=== PATIENT | female | born 1960 | race Asian ===

== ENCOUNTER 2017-10-30 14:50 | Outpatient (CLI) | payer OTHER | END 2017-10-30 14:51 | disposition home or self-care (01) | LOC: SC 14:50 | PROVIDERS: ATTEND Specialist | DX: R53.83 Other fatigue (principal); R51 Headache; R06.83 Snoring; G47.29 Other circadian rhythm sleep disorder; G47.00 Insomnia, unspecified | CPT/HCPCS: 99205; 99212 ==

== ENCOUNTER 2017-11-10 09:21 | Emergency (ER) | payer OTHER ==
--- NOTE | 2017-11-10 09:41 | ED Physician Documentation ---
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 She states that he head started to feel hot and she started to feel lightheaded. no Vertigo, no chest pain or palpitations or shortness of breath. had no LOC. has had some sinus congestion but no fevers. No nausea or vomiting. She took her BP and had an elevated BP (140's/100's). she is not on BP meds however has been evaluated by her PCM for hypertension. She is also being evaluated for JAYE. At the time of the interview she staes that he head still feel foggy.) - History of Present Illness Timing: Prior to arrival Review of Systems Constitutional: denies: Fever, Chills Ears: denies: Drainage/discharge Nose: reports: Congestion Throat: denies: Sore throat Cardiac: denies: Chest pain / pressure, Palpitations Respiratory: denies: Cough, Wheezing GI: denies: Abdominal Pain, Nausea, Vomiting, Diarrhea : denies: Dysuria, Frequency Skin: denies: Rash Musculoskeletal: denies: Extremity pain, Extremity swelling Neurologic: reports: Near syncope. 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 - Present Medications Home Medications: Ambulatory Orders Medication Instructions Recorded Confirmed Lorazepam [Ativan] 1 mg PO BID PRN #20 tablet 11/25/16 11/10/17 Sertraline [Zoloft] 50 mg PO DAILY #30 tablet 11/25/16 11/10/17 Albuterol Sulf [Ventolin Hfa 2 puffs PO Q4HR PRN 10/07/17 11/10/17 Inhaler] Gabapentin 300 mg PO QPM PRN 10/07/17 11/10/17 - Allergies Allergies/Adverse Reactions: Allergies Allergy/AdvReac Type Severity Reaction Status Date / Time prochlorperazine AdvReac Unknown Verified 10/07/17 10:46 [From Compazine] prochlorperazine edisylate * AdvReac Unknown Verified 10/07/17 10:46 [From Compazine] prochlorperazine maleate * AdvReac Unknown Verified 10/07/17 10:46 [From Compazine] - Social History Does the pt smoke?: No Smoking Status: Never smoker Does the pt have substance abuse?: No - Immunizations Immunizations are current?: Yes PD ED PE NORMAL - Vitals Vital signs reviewed: Yes - General General: Alert and oriented X 3, No acute distress - HEENT HEENT: Atraumatic, PERRL, EOMI, Ears normal, Moist mucous membranes, Pharynx benign - Cardiac Cardiac: RRR, No murmur - Respiratory Respiratory: No respiratory distress, Clear bilaterally - Abdomen Abdomen: Non tender - Derm Derm: Normal color, No rash - Extremities Extremities: No deformity, No edema - Neuro Neuro: Alert and oriented X 3, loan interviewer mortgage 2-12 intact, No motor deficit, No sensory deficit, Normal speech Eye Opening: Spontaneous Motor: Obeys Commands Verbal: Oriented GCS Score: 15 - Psych Psych: Normal mood, Normal affect PD ED PE EXPANDED - Neuro Neuro: Alert and Oriented X 3, Normal motor, Normal Sensation, Normal Speech, CNII-XII intact, PERRL, Normal speech. No: Confused, Disoriented, Weakness, Abnormal sensation, CN deficit, Nystagmus Results - Vitals Vitals: Vital Signs - 24 hr 11/10/17 11/10/17 09:21 09:41 Temperature 36.6 C Heart Rate 75 73 Respiratory 17 17 Rate Blood Pressure 141/96 H 121/71 O2 Saturation 97 97 Oxygen O2 Source Room air - EKG (time done) 0924 Rate: Rate (enter#) Rhythm: NSR [place]: Normal Intervals: Normal ID, QRS normal QRS: Normal Ischemia: Normal ST segments - Labs Labs: Laboratory Tests 11/10/17 09:40 POC Whole Bld Glucose 96 PD MEDICAL DECISION MAKING - ED course Complexity details: d/w patient ED course: Pt BGL > 90 here in the ER. her SBP was in the 120's-130's. ECG normal. has a normal neuro exam. doubt ACS or CVA. discussed with pt. she will follow up with her primary care provider. Departure - Departure Disposition: 01 Home, Self Care Clinical Impression: Light-headed feeling Condition: Good Instructions: Hypertension Control Follow-Up: Flynn Caldera MD [Primary Care Provider] - Comments: Continue to watch your blood pressure at home and discuss these numbers with your primary care provider. Call your primary care provider for a follow up in the next week. Return to the ER for any new or worsening symptoms. Forms: Activity restrictions
[2017-11-10 11:05] VITALS: BP 137/74
== END 2017-11-10 11:05 | disposition home or self-care (01) ==
LOC: ED 09:21
DX: R42 Dizziness and giddiness (principal); J45.909 Unspecified asthma, uncomplicated
CPT/HCPCS: 93005; 99283; 99284

== ENCOUNTER 2017-11-22 19:17 | Outpatient (CLI) | payer OTHER | END 2017-11-22 19:18 | disposition home or self-care (01) | LOC: SC 19:17 | PROVIDERS: ATTEND Specialist | DX: G47.61 Periodic limb movement disorder (principal) | CPT/HCPCS: 95810 ==

== ENCOUNTER 2018-01-20 13:46 | Outpatient (CLI) | payer OTHER | END 2018-01-20 13:47 | disposition home or self-care (01) | LOC: SC 13:46 | PROVIDERS: ATTEND Nurse Practitioner Family | DX: G47.61 Periodic limb movement disorder (principal); R06.83 Snoring | CPT/HCPCS: 99212; 99214 ==

== ENCOUNTER 2018-12-18 14:53 | Outpatient (CLI) | payer OTHER ==
--- NOTE | 2018-12-21 09:28 | Mammography Report ---
Reason: SCREENING MAMMO Procedure Date: 12/18/2018 Accession Number: [id number] / [id number] Procedure: JENNIFER - Screening Mammo w/Willian CPT Code: FULL RESULT: EXAM: Screening Mammo w/Willian DATE: 12/18/2018 3:38 PM CLINICAL HISTORY: Screening encounter. History of late childbearing and early menses. TECHNIQUE: Bilateral CC and MLO views were obtained. COMPARISON: 04/13/2015 through 03/31/2013. FINDINGS: The breasts demonstrate scattered fibroglandular densities bilaterally. There is a typically benign intramammary right breast lymph node. No suspicious masses, clustered microcalcifications, or regions of architectural distortion are identified. IMPRESSION: Benign findings RECOMMENDATION: Routine annual screening unless otherwise clinically indicated. BIRADS CATEGORY 2: Benign findings STANDARD QUALIFYING STATEMENTS: 1. This examination was not reviewed with the aid of Computer-Aided Detection (CAD). 2. A negative or benign imaging report should not preclude biopsy if clinically suspicious findings are present. 3. Dense breasts may obscure an underlying neoplasm. 4. This examination was reviewed with the aid of 3D breast imaging (tomosynthesis).
== END 2018-12-18 14:54 | disposition home or self-care (01) ==
LOC: DI 14:53
PROVIDERS: ATTEND Internal Medicine
DX: Z12.31 Encounter for screening mammogram for malignant neoplasm of breast (principal)
CPT/HCPCS: 77063; 77067

== ENCOUNTER 2018-12-18 14:55 | Outpatient (CLI) | payer OTHER ==
--- NOTE | 2018-12-19 10:18 | Ultrasound Report ---
Reason: SCREENING FOR CARDIOVASCULAR SYSTEM DISEASE Procedure Date: 12/18/2018 Accession Number: [id number] / [id number] Procedure: US - Carotid Doppler Complete CPT Code: FULL RESULT: EXAM: BILATERAL CAROTID AND VERTEBRAL ARTERY DUPLEX DOPPLER ULTRASOUND: EXAM DATE: 12/18/2018 03:35 PM CLINICAL HISTORY: SCREENING FOR CARDIOVASCULAR SYSTEM DISEASE. COMPARISON: None. TECHNIQUE: Grayscale imaging, color Doppler, and duplex spectral Doppler were used to evaluate the carotid and vertebral arteries bilaterally. Static images were obtained. FINDINGS: Right Carotid: Minimal intimal thickening and some early plaque formation in the right common carotid bulb segment and proximal internal carotid artery. No significant stenosis. Left Carotid: Mild echogenic plaque formation in the left common carotid bulb segment and proximal internal carotid artery. No significant calcification. No significant stenosis. Normal antegrade flow is present in bilateral vertebral arteries. VELOCITIES (cm/sec): Right CCA Mid: PSV 97 cm/sec CCA Dist: PSV 93 cm/sec ICA Prox: PSV 69 cm/sec, EDV 21 cm/sec ICA Mid: PSV 60 cm/sec, EDV 25 cm/sec ICA Dist: PSV 103 cm/sec, EDV 41 cm/sec ECA: PSV 104 cm/sec Vert: PSV 62 cm/sec ICA/CCA: 1.06 Left CCA Mid: PSV 90 cm/sec CCA Dist: PSV 82 cm/sec ICA Prox: PSV 69 cm/sec, EDV 33 cm/sec ICA Mid: PSV 87 cm/sec, EDV 32 cm/sec ICA Dist: PSV 73 cm/sec, EDV 28 cm/sec ECA: PSV 104 cm/sec Vert: PSV 41 cm/sec ICA/CCA: 0.97 ICA diameter stenosis: Right: <50% by velocity and <70% by NASCET criteria. Left: <50% by velocity and <70% by NASCET criteria. IMPRESSION: 1. Mild bilateral carotid atherosclerosis. 2. In the right carotid artery there are no elevated carotid artery velocities to suggest hemodynamically significant stenosis. 3. In the left carotid artery there are no elevated carotid artery velocities to suggest hemodynamically significant stenosis. 4. Normal antegrade flow is present in bilateral vertebral arteries. General Recommendations: Stenosis =50% ICA - Follow-up ultrasound 6-12 months Stenosis <50% ICA - High Risk Patient with plaque - Follow-up ultrasound 1-2 years Normal Study but High Risk Patient - Follow-up ultrasound 3-5 years Management recommendations and diagnostic criteria are based on current IAC endorsed standards in Carotid Artery Stenosis: Grayscale and Doppler Ultrasound Diagnosis. Validated velocity measurements with angiographic measurements and velocity criteria are extrapolated from diameter data as defined by the Society of Radiologists in Ultrasound Consensus Conference Radiology 2003; 229;340-346. RADIA
== END 2018-12-18 14:56 | disposition home or self-care (01) ==
LOC: DI 14:55
PROVIDERS: ATTEND Internal Medicine
DX: Z13.6 Encounter for screening for cardiovascular disorders (principal); I25.10 Atherosclerotic heart disease of native coronary artery without angina pectoris
CPT/HCPCS: 93880

== ENCOUNTER 2019-05-24 08:25 | Emergency (ER) | payer OTHER ==
--- NOTE | 2019-05-24 08:41 | ED Physician Documentation ---
PD HPI MHE - Stated complaint Stated Complaint: ANXIETY - Chief complaint Chief Complaint: MHE - History obtained from History obtained from: Patient - History of Present Illness Primary symptom: Suicidal ideation (vague), Depression, Anxiety, Other (significant insomnia the past month, without any change in diet, habits, meds. No noted new stress. Does not drink alcohol. 1-2 cups coffee in AMs for alf; no recent change. States she feels she can get to sleep well enough, but awakens often during the night, then cannot get back to sleep. Also having heart burn awaken her at times too.) Contributing factors: Other (insomnia is making her tired, depressed.) Similar symptoms before: Has not had sx before Recently seen: Clinic (seen by PMD a month ago and had Ativan Rx (something the patient had taken in the past PRN) for sleep, which the pateint says was being effective for couple weeks. Then back to PMD and was also Rx Lexapro to help with anxiety symptoms and some mild depression. Patient says she has been more anxious, foggy thinking, insomniac again, and some vague suicidal ideation the past week since starting the Lexapro. Feeling very tired and anxious about not sleeping. She states did have basic blood lab tests done from office, which were normal (patient not sure if TSH done, but believes so).) Review of Systems Constitutional: denies: Fever, Chills, Myalgias, Fatigue Nose: denies: Rhinorrhea / runny nose, Congestion Throat: denies: Sore throat Respiratory: denies: Cough GI: reports: Abdominal Pain (GERD symptoms that have awoken her during night as well. On Omeprazole.) Neurologic: reports: Generalized weakness. 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 - Present Medications Home Medications: Ambulatory Orders Medication Instructions Recorded Confirmed Lorazepam [Ativan] 1 mg PO BID PRN #20 tablet 11/25/16 05/24/19 Albuterol Sulf [Ventolin Hfa 2 puffs PO Q4HR PRN 10/07/17 05/24/19 Inhaler] Amitriptyline [Elavil] 50 mg PO HS PRN #30 tablet 05/24/19 Escitalopram [Lexapro] 10 mg PO DAILY 05/24/19 05/24/19 Omeprazole 40 mg PO DAILY 05/24/19 05/24/19 Sucralfate [Carafate] 1 gm PO ACHS #30 tablet 05/24/19 - Allergies Allergies/Adverse Reactions: Allergies Allergy/AdvReac Type Severity Reaction Status Date / Time prochlorperazine AdvReac Unknown Verified 05/24/19 08:36 [From Compazine] prochlorperazine edisylate * AdvReac Unknown Verified 05/24/19 08:36 [From Compazine] prochlorperazine maleate * AdvReac Unknown Verified 05/24/19 08:36 [From Compazine] - Social History Does the pt smoke?: No Smoking Status: Never smoker Does the pt have substance abuse?: No - Immunizations Immunizations are current?: Yes PD ED PE NORMAL - Vitals Vital signs reviewed: Yes - General General: Alert and oriented X 3, No acute distress, Well developed/nourished - HEENT HEENT: Moist mucous membranes, Pharynx benign - Neck Neck: Supple, no meningeal sign, No adenopathy, Thyroid normal - Cardiac Cardiac: RRR, No murmur - Respiratory Respiratory: Clear bilaterally - Abdomen Abdomen: Soft, Non tender - Back Back: No CVA TTP - Derm Derm: Normal color, Warm and dry - Extremities Extremities: Normal ROM s pain, No edema, No calf tenderness / cord - Neuro Neuro: Alert and oriented X 3, No motor deficit, No sensory deficit, Normal speech - Psych Psych: Normal affect. No: Normal mood (seems sad, and somewhat anxious about it. Pleasant and conversant. ) Results - Vitals Vitals: Vital Signs - 24 hr 05/24/19 05/24/19 08:32 10:18 Temperature 36.0 C L Heart Rate 72 67 Respiratory 16 14 Rate Blood Pressure 148/85 H 142/73 H O2 Saturation 97 94 Oxygen O2 Source Room air PD MEDICAL DECISION MAKING - ED course Complexity details: considered differential (sounds like common enough symptoms from SSRI, but is causing it too much for her. It is worsening her insomnia and has not been long enough to at all help with anxiety. For now, will have her stop the Lexapro. Can continue the Ativan for sleep, and add Elavil too for sleep, rather than increasing the benzo dose. Will add Carafate for her reflux, which is what may be causing her awakening the most, rather than anxiety per se. ), d/w patient Departure - Departure Disposition: 01 Home, Self Care Clinical Impression: Side effect of medication Insomnia Qualifiers: Insomnia type: unspecified Qualified Code(s): G47.00 - Insomnia, unspecified GERD (gastroesophageal reflux disease) Qualifiers: Esophagitis presence: with esophagitis Qualified Code(s): K21.0 - Gastro- esophageal reflux disease with esophagitis Condition: Stable Record reviewed to determine appropriate education?: Yes Instructions: ED Insomnia Follow-Up: Flynn Caldera MD [Primary Care Provider] - Prescriptions: Amitriptyline [Elavil] 50 mg PO HS PRN #30 tablet PRN Reason: Insomnia Sucralfate [Carafate] 1 gm PO ACHS #30 tablet Comments: It sounds like some of the worsening on symptoms currently are side effects of the Lexapro. I think it would be reasonable to stop the Lexapro for now. For the trouble sleeping, continue your Ativan and add Elavil 50 mg at night. If you awaken during the night you can add another 50 mg of the Elavil as a second dose. For the reflux and esophagitis from it, continue your omeprazole and add sucralfate at least at night and more likely 2 or 3 times during the day including night. This will coat the stomach better and hopefully promote better healing. Follow-up with Dr. Caldera's office in the next week to discuss how you are doing with the above medications and see if any changes are needed. Return if worsening. Discharge Date/Time: 05/24/19 10:19
[2019-05-24] MEDS ORDERED: traZODone 50 MG TABLET PO STA (09:29)
[2019-05-24 10:19] VITALS: BP 142/73
== END 2019-05-24 10:19 | disposition home or self-care (01) ==
LOC: ED 08:25
DX: G47.00 Insomnia, unspecified (principal); R53.1 Weakness; T43.225A Adverse effect of selective serotonin reuptake inhibitors, initial encounter; K21.0 Gastro-esophageal reflux disease with esophagitis; F41.9 Anxiety disorder, unspecified; F32.9 Major depressive disorder, single episode, unspecified
CPT/HCPCS: 99283; A9270

== ENCOUNTER 2019-05-25 16:39 | Outpatient (CLI) | payer OTHER | END 2019-05-25 16:40 | disposition short-term general hospital (02) | LOC: EMS 16:39 | PROVIDERS: ATTEND Surgery | DX: R07.89 Other chest pain (principal) | CPT/HCPCS: A0425; A0427 ==

== ENCOUNTER 2019-06-07 08:11 | Outpatient (CLI) | payer OTHER ==
--- NOTE | 2019-06-07 09:33 | Ultrasound Report ---
Reason: ATYPICAL CHEST PAIN Procedure Date: 06/07/2019 Accession Number: [id number] / [id number] Procedure: US - Abdomen Limited CPT Code: FULL RESULT: EXAM: ABDOMEN ULTRASOUND LIMITED, RUQ EXAM DATE: 06/07/2019 09:13 AM. CLINICAL HISTORY: Atypical chest pain. COMPARISON: None. TECHNIQUE: Real-time scanning was performed with static images obtained. FINDINGS: Liver: Mildly coarse echotexture with minimally increased echogenicity of the liver when compared to kidney parenchyma. This is nonspecific but limits evaluation for underlying masses. No masses seen. Liver measures at least 14.4 cm. Main portal vein flow: Hepatopetal. Gallbladder: Normal. No stones, wall thickening, or sonographic Jett's sign. Biliary System: CBD measures 3 mm. No intrahepatic or extrahepatic ductal dilatation. Other: None. IMPRESSION: Mildly increased hepatic echogenicity with mildly coarsened liver texture, nonspecific but can be seen with steatosis. No cholecystitis. RADIA
[2019-06-07] MEDS ORDERED: BARIUM SULFATE 135 ML BOTTLE PO ONE (10:30)
[2019-06-07] MEDS ORDERED: BARIUM SULFATE 148 GM POWDER PO ONE (10:30)
--- NOTE | 2019-06-07 11:40 | XRAY Report ---
Reason: ATYPICAL CHEST PAIN Procedure Date: 06/07/2019 Accession Number: [id number] / [id number] Procedure: FL - UGI KUB W/Air CPT Code: FULL RESULT: EXAM: UPPER GI SERIES EXAM DATE: 06/07/2019 10:20 AM. CLINICAL HISTORY: Atypical chest pain. COMPARISONS: None. TECHNIQUE: Routine double contrast upper gastrointestinal technique. Fluoroscopy Time: 1 minute 55 seconds. Number of fluoroscopy images: 40. FINDINGS: Swallowing Mechanism: Normal oral phase and swallowing reflex. No episodes of tracheal penetration or aspiration evident. Esophageal Motility: Somewhat discoordinated stripping wave with a mild amount of esophageal spasm. Esophageal Mucosa: Feline esophagus is noted, considered variant of normal. No definite ulceration or mass. Gastroesophageal Junction: No hiatal hernia is seen. Spontaneous reflux is seen which is not replicated during the provocative maneuver later in the examination. Stomach: Normal gastric mucosal pattern. No ulcers identified. Duodenum: Normal duodenal mucosal pattern. No ulcers or diverticula identified. Other: The associated scout sniper abdominal radiograph demonstrates a normal nonobstructive bowel gas pattern. IMPRESSION: Esophageal dysmotility with mild spasm and spontaneous reflux. RADIA
== END 2019-06-07 08:12 | disposition home or self-care (01) ==
LOC: DI 08:11
PROVIDERS: ATTEND Internal Medicine Gastroenterology
DX: R07.89 Other chest pain (principal); K21.9 Gastro-esophageal reflux disease without esophagitis; K22.4 Dyskinesia of esophagus
CPT/HCPCS: 74247; 76705; A9270

== ENCOUNTER 2019-06-08 07:16 | Day surgery (SDC) | payer OTHER ==
[2019-06-08] MEDS ORDERED: LIDO GARGLE 30 ML BOTTLE ONE (07:28)
[2019-06-08] MEDS ORDERED: LACTATED RINGERS 1,000 ML IV ONE (07:41)
[2019-06-08] MEDS ORDERED: MIDAZOLAM 2 MG/2 ML VIAL IVP ONE (08:58)
[2019-06-08] MEDS ORDERED: fentaNYL 100 MCG/2 ML VIAL IVP ONE (08:58)
[2019-06-08] MEDS ORDERED: LIDO GARGLE 30 ML BOTTLE PO ONE (09:08)
[2019-06-08 10:06] VITALS: BP 139/88
== END 2019-06-08 07:17 | disposition home or self-care (01) ==
LOC: SDS 07:16
PROVIDERS: ATTEND Internal Medicine Gastroenterology
PROC: 0DB58ZX Excision of Esophagus, Via Natural or Artificial Opening Endoscopic, Diagnostic (ICD-10-PCS; 2019-06-08)
PROC: 0DB98ZX Excision of Duodenum, Via Natural or Artificial Opening Endoscopic, Diagnostic (ICD-10-PCS; principal; 2019-06-08 08:30)
DX: R07.89 Other chest pain (principal); K20.9 Esophagitis, unspecified; R14.2 Eructation; R11.0 Nausea; G47.00 Insomnia, unspecified; F41.9 Anxiety disorder, unspecified; F32.9 Major depressive disorder, single episode, unspecified; I10 Essential (primary) hypertension; Z63.8 Other specified problems related to primary support group; Z79.899 Other long term (current) drug therapy
CPT/HCPCS: 43239; A9270; J7120

== ENCOUNTER 2019-06-28 16:52 | Outpatient (CLI) | payer OTHER ==
[2019-06-28 17:20] LABS: ALBUMIN 4.2 g/dL (3.2-5.5); ALBUMIN/GLOBULIN RATIO 1.3 (1.0-2.2); BILIRUBIN,TOTAL 0.7 mg/dL (0.2-1.0); CALCIUM 9.4 mg/dL (8.5-10.3); CREATININE 0.7 mg/dL (0.4-1.0); TOTAL PROTEIN 7.5 g/dL (6.7-8.2)
== END 2019-06-28 16:53 | disposition home or self-care (01) ==
LOC: LAB 16:52
PROVIDERS: ATTEND Nurse Practitioner
DX: G47.00 Insomnia, unspecified (principal); F41.8 Other specified anxiety disorders
CPT/HCPCS: 36415; 80053; 84443

== ENCOUNTER 2019-10-04 08:36 | Outpatient (CLI) | payer OTHER | END 2019-10-04 08:37 | disposition home or self-care (01) | LOC: LAB 08:36 | PROVIDERS: ATTEND Nurse Practitioner | DX: F32.9 Major depressive disorder, single episode, unspecified (principal); F41.9 Anxiety disorder, unspecified; R53.83 Other fatigue; G47.00 Insomnia, unspecified | CPT/HCPCS: 36415; 81599; 82634 ==

== ENCOUNTER 2019-10-08 12:05 | Emergency (ER) | payer OTHER ==
--- NOTE | 2019-10-08 12:14 | ED Physician Documentation ---
History of Present Illness - Stated complaint Stated Complaint: DIZZINESS - Chief complaint Chief Complaint: Neuro - Additonal information Additional information: This is a 59-year-old female who presents with some lightheadedness. Patient states that she does suffer from anxiety and depression, and she oftentimes has trouble getting out of bed in the mornings because she takes trazodone at night. 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 She had to sit down because she felt lightheaded, but did not actually pass out. She denies any chest pain, she had a brief episode of mild shortness of breath which resolved completely. She now denies any pain whatsoever, no abdominal pain, nausea, vomiting, fever, chest pain. She thinks that this is likely an episode related to her typical anxiety, and she is feeling a bit better now. 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 - Present Medications Home Medications: Ambulatory Orders Medication Instructions Recorded Confirmed Albuterol Sulf [Ventolin Hfa 2 puffs PO Q4HR PRN 10/07/17 06/07/19 Inhaler] Omeprazole 20 mg PO DAILY 05/24/19 06/08/19 Ascorbic Acid [Vitamin C] 500 mg PO DAILY 06/07/19 06/08/19 Cholecalciferol (Vitamin D3) 2,000 unit PO DAILY 06/07/19 06/08/19 [Vitamin D] Lorazepam [Ativan] 1 mg PO TID MDD anxi 06/07/19 06/08/19 Magnesium 250 mg PO DAILY 06/07/19 06/08/19 Multivitamin/Iron/Folic Acid 1 each PO DAILY 06/07/19 06/08/19 [Centrum Women Tablet] Tincture Of Passion Flower 1 tsp PO QID PRN 06/07/19 Vitamin B Complex 1 each PO DAILY 06/07/19 06/08/19 Zinc Gluconate [Zinc] 30 mg PO DAILY 06/07/19 06/08/19 - Allergies Allergies/Adverse Reactions: Allergies Allergy/AdvReac Type Severity Reaction Status Date / Time prochlorperazine AdvReac Unknown Verified 10/08/19 12:07 [From Compazine] prochlorperazine edisylate * AdvReac Unknown Verified 10/08/19 12:07 [From Compazine] prochlorperazine maleate * AdvReac Unknown Verified 10/08/19 12:07 [From Compazine] - Social History Does the pt smoke?: No Smoking Status: Never smoker Does the pt have substance abuse?: No - Immunizations Immunizations are current?: Yes PD ED PE NORMAL - General General: Alert and oriented X 3 - HEENT HEENT: Atraumatic - Neck Neck: Supple, no meningeal sign - Cardiac Cardiac: RRR - Respiratory Respiratory: No respiratory distress, Clear bilaterally - Abdomen Abdomen: Soft, Non tender, Non distended - Neuro Neuro: Alert and oriented X 3, merchandising manager 2-12 intact, No motor deficit, No sensory deficit, Normal speech, Other (No dysmetria on finger-nose testing) Results - Vitals Vitals: Vital Signs - 24 hr 10/08/19 10/08/19 10/08/19 12:07 13:00 14:11 Temperature 37 C Heart Rate 87 73 95 Respiratory 18 19 17 Rate Blood Pressure 169/97 H 136/74 H 154/97 H O2 Saturation 97 95 97 Oxygen O2 Source Room air - EKG (time done) 12:04 Other comments: Other comments (Rate 78, rhythm sinus, there is no ST segment elevation. There is slight upsloping ST depression at the J-point V5 V6, this is less than 0.5 mm) - Labs Labs: Laboratory Tests 10/08/19 10/08/19 10/08/19 12:55 12:55 13:43 WBC 6.8 RBC 4.35 Hgb 13.9 Hct 42.1 MCV 96.8 MCH 32.0 H MCHC 33.0 RDW 12.1 Plt Count 232 MPV 11.2 H Neut # (Auto) 4.9 Lymph # (Auto) 1.3 L Norton # (Auto) 0.4 Eos # (Auto) 0.1 Baso # (Auto) 0.1 Absolute Nucleated RBC 0.00 Nucleated RBC % 0.0 Sodium 141 Potassium 3.9 Chloride 105 Carbon Dioxide 27 Anion Gap 9.0 BUN 18 Creatinine 0.7 Estimated GFR (MDRD) 85 L Glucose 93 Calcium 8.8 Total Bilirubin 0.7 AST 16 ALT 17 Alkaline Phosphatase 47 Troponin I High Sens < 2.3 L Total Protein 6.4 L Albumin 3.8 Globulin 2.6 Albumin/Globulin Ratio 1.5 Lipase 39 PD MEDICAL DECISION MAKING - ED course Complexity details: considered differential (Orthostasis, dehydration, dysrhythmia, ACS, electrolyte abnormality) ED course: On my examination patient is well-appearing with vital signs unremarkable. EKG shows questionable upsloping slight ST depression in V5 V6, overall not convincing for ischemia, no signs of dysrhythmia. Patient was given a 1 L bolus of fluids, and afterwards is feeling much better. Electrolytes are unremarkable, blood counts are also unremarkable with no anemia. Troponin is negative, patient has no chest pain, ACS highly unlikely. On repeat evaluation after patient has had her fluids and eating, she is feeling much better. Some degree of dehydration likely was contributing to her symptoms. I discussed our results, recommend she continue to follow-up with her primary care provider, and she return to emergency department with any new or worsening symptoms. It sounds like patient has been struggling with this type of lightheadedness for a while, and she thinks that potentially her increase in trazodone has been related to this. She will discuss this with her provider further to determine whether brian nge her medications will be warranted. She was discharged home in good condition. Departure - Departure Disposition: 01 Home, Self Care Clinical Impression: Lightheaded Condition: Good Instructions: ED Near Syncope Unkn Follow-Up: Tawanna Bob ARNP, FRUIT PRESS OPERATOR-C [Primary Care Provider] - Within 1 week Comments: You were seen today for lightheadedness. Your labs are reassuring at this time. Please drink adequate fluids, get good rest, and follow with your primary care provider. If you are developing new concerning symptoms such as passing out, chest pain, shortness of breath, return to the emergency department. Please avoid doing activities that could lead to injury if you do pass out until you are feeling completely better
[2019-10-08] MEDS ORDERED: SODIUM CHLORIDE 0.9% 1,000 ML IV ONE (12:36)
[2019-10-08 13:22] LABS: BASOPHILS # (AUTO) 0.1 10^3/uL (0.0-0.1); BASOPHILS % (AUTO) 0.7 %; EOSINOPHILS # (AUTO) 0.1 10^3/uL (0.0-0.7); EOSINOPHILS % (AUTO) 1.8 %; HGB - HEMOGLOBIN 13.9 g/dL (12.0-16.0); LYMPHOCYTES # (AUTO) 1.3 10^3/uL (1.5-3.5); LYMPHOCYTES % (AUTO) 19.1 %; MEAN CORPUSCULAR VOLUME 96.8 fL (81.0-99.0); MEAN PLATELET VOLUME 11.2 fL (7.9-10.8); MONOCYTES # (AUTO) 0.4 10^3/uL (0.0-1.0); MONOCYTES % (AUTO) 6.1 %; NEUTROPHILS # (AUTO) 4.9 10^3/uL (1.5-6.6); NEUTROPHILS % (AUTO) 71.9 %; PLT - PLATELET COUNT 232 10^3/uL (130-450); RED BLOOD COUNT 4.35 10^6/uL (4.20-5.40); RED CELL DISTRIBUTION WIDTH 12.1 % (12.0-15.0); WHITE BLOOD COUNT 6.8 x10^3/uL (4.8-10.8)
[2019-10-08 14:00] LABS: ALBUMIN 3.8 g/dL (3.2-5.5); ALBUMIN/GLOBULIN RATIO 1.5 (1.0-2.2); BILIRUBIN,TOTAL 0.7 mg/dL (0.2-1.0); CALCIUM 8.8 mg/dL (8.5-10.3); CREATININE 0.7 mg/dL (0.4-1.0); TOTAL PROTEIN 6.4 g/dL (6.7-8.2)
[2019-10-08 14:12] VITALS: BP 154/97
== END 2019-10-08 14:25 | disposition home or self-care (01) ==
LOC: ED 12:05
DX: R42 Dizziness and giddiness (principal); E86.0 Dehydration; F41.9 Anxiety disorder, unspecified; R94.31 Abnormal electrocardiogram [ECG] [EKG]
CPT/HCPCS: 36415; 80053; 83690; 84484; 85025; 93005; 96360; 99283

== ENCOUNTER 2019-11-04 07:42 | Outpatient (CLI) | payer OTHER ==
[2019-11-04 08:16] LABS: HEMOGLOBIN A1C 0.57 g/dL; HEMOGLOBIN A1C % 5.9 % (4.6-6.2)
[2019-11-04 08:33] LABS: CHOL/HDL RATIO 5.5 (<4.4); CHOLESTEROL 226 mg/dL; HDL CHOLESTEROL 41 mg/dL; LDL CHOLESTEROL,CALCULATED 110 mg/dL; LDL/HDL RATIO 2.7 (<4.4); VLDL CHOLESTEROL 75 mg/dL
== END 2019-11-04 07:43 | disposition home or self-care (01) ==
LOC: LAB 07:42
PROVIDERS: ATTEND Nurse Practitioner
DX: I10 Essential (primary) hypertension (principal); E78.5 Hyperlipidemia, unspecified; R73.01 Impaired fasting glucose
CPT/HCPCS: 36415; 80061; 83036; 83721